=== PATIENT | male | born 1950 | race Caucasian/White ===

== ENCOUNTER 2016-10-18 11:34 | Emergency (ER) | payer BC, OTHER ==
[~2016-10-18] VITALS: Ht 170.2 cm; Wt 90.9 kg
[~2016-10-18 11:34] MED LIST: B-12500 MCG PO; MAGNESIUM200 MG PO; MYFORTIC180 MG PO; PRILOSEC40 MG PO; PROGRAF1 MG PO; ZESTRIL,PRINIVIL5 MG PO
[2016-10-18 12:34] LABS: HEMATOCRIT 54.2 % (38.0-50.0); MCH 32.6 PG (29.0-34.0); MCHC 34.1 G/DL (30.0-36.0); MCV 95.4 FL (86-99); MEAN PLAT.VOLUME 10.7 uM^3 (9.0-12.4); PLATELET COUNT 172 K/uL (156-360); RBC DIS.WIDTH-CV 13.1 % (11.8-14.6); RBC DIS.WIDTH-SD 45.7 % (39-53); RED BLOOD COUNT 5.68 M/uL (4.00-5.50); WHITE BLOOD COUNT 9.1 K/uL (4.1-10.2)
[2016-10-18 12:57] LABS: CHLORIDE 106 mEq/L (99-109); POTASSIUM 5.3 mEq/L (3.7-5.4); SODIUM 140 mEq/L (136-147)
[2016-10-18 12:59] LABS: GLUCOSE 129 mg/dL (70-99)
[2016-10-18 13:00] LABS: ANION GAP 12 MEQ/L (2-14)
[2016-10-18 13:01] LABS: TOTAL BILIRUBIN 1.5 mg/dL (0.0-1.0)
[2016-10-18 13:03] LABS: ALKALINE PHOSPHATASE 86 IU/L (3-129); GFR ESTIMATE (CALCULATED) 59 mL/min/
[2016-10-18 13:04] LABS: UREA NITROGEN (BUN) 18 mg/dL (9-23)
[2016-10-18 13:06] LABS: LIPASE 17 U/L (1.0-51.0)
[2016-10-18 14:48] LABS: ADD MIUA? YES; BILIRUBIN NEGATIVE; BLOOD SMALL; COLOR AMBER ((YELLOW)); GLUCOSE (STRIP) NEGATIVE; KETONES 20; LEUKOCYTES NEGATIVE; NITRITE NEGATIVE; PROTEIN (STRIP) 100; SPECIFIC GRAVITY 1.024 (1.000-1.030); UROBILINOGEN 0.2 MG/DL (0.2-1.0)
[2016-10-18 15:03] LABS: BACTERIA RARE /HPF; EPITHELIAL CELLS NONE SEEN /HPF; MUCUS 1+ /LPF; UCUL ADDED? NO
[2016-10-18] MEDS ORDERED: MOTRIN600 MG PO (16:06)
[2016-10-18] MEDS ORDERED: FLEXERIL10 MG PO (16:06)
[2016-10-18] MEDS ORDERED: LISINOPRIL10 MG PO (16:30)
[2016-10-18] MEDS ORDERED: OXAYDO5 MG PO (16:33)
[2016-10-18] MEDS ORDERED: OXYCONTIN15 MG PO (16:33)
[2016-10-18 17:29] VITALS: BP 188/92
== END 2016-10-18 17:17 | disposition home or self-care (01) ==
LOC: EME 11:34
DX: M54.5 Low back pain (principal); Z94.4 Liver transplant status; R19.7 Diarrhea, unspecified; Z85.05 Personal history of malignant neoplasm of liver; G89.29 Other chronic pain; I10 Essential (primary) hypertension; K21.9 Gastro-esophageal reflux disease without esophagitis; F17.200 Nicotine dependence, unspecified, uncomplicated
CPT/HCPCS: 74177; 80053; 81003; 83690; 85027; J2060; J2270; J3010